=== PATIENT | female | born 1965 | race Caucasian/White ===

== ENCOUNTER 2018-01-04 08:18 | Inpatient (IN) | payer MEDICAID ==
[~2018-01-04] VITALS: Ht 165.1 cm; Wt 58.8 kg
[2018-01-04] MEDS ORDERED: LORazepam 2 MG/ML, 1ML ONE ×2 (08:28→16:41)
[2018-01-04] MEDS ORDERED: methylPREDNISolone SOD SUCC 125 MG/2 ML ONE (08:29)
[2018-01-04] MEDS ORDERED: ALBUTEROL/IPRATROPIUM 2.5MG/0.5MG, 3 ML ONE (08:39)
[2018-01-04] MEDS ORDERED: ALBUTEROL SULFATE 2.5 MG/3 ML ONE ×2 (08:39→14:15)
[2018-01-04] MEDS ORDERED: ALBUTEROL SULFATE 2.5 MG/3 ML NPPB ONE (08:40)
[2018-01-04 08:57] LABS: FIO2 40 %
[2018-01-04] MEDS ORDERED: SODIUM CHLORIDE FLUSH 10ML SYR IVF ONE (09:00)
[2018-01-04] MEDS ORDERED: MAGNESIUM SULFATE PMX 2GM/50ML 50 ML IV ONE (09:00)
[2018-01-04] MEDS ORDERED: ALBUTEROL/IPRATROPIUM 2.5MG/0.5MG, 3 ML NEB ONE (09:00)
[2018-01-04] MEDS ORDERED: ALBUTEROL/IPRATROPIUM 2.5MG/0.5MG, 3 ML NPPB SCH (09:00)
[2018-01-04 09:10] LABS: BASOPHILS # (AUTO) 0.05 x10^3/uL (0-0.1); BASOPHILS % (AUTO) 1 % (0-1); EOSINOPHILS # (AUTO) 0.59 x10^3/uL (0-0.4); EOSINOPHILS % (AUTO) 7 % (1-7); LYMPHOCYTES # (AUTO) 2.15 x10^3/uL (1-3.4); LYMPHOCYTES % (AUTO) 24 % (22-44); MD NO; MEAN CORPUSCULAR HEMOGLOBIN 29.4 pg (27.0-34.8); MEAN CORPUSCULAR HGB CONC 33.9 g/dL (32.4-35.8); MEAN CORPUSCULAR VOLUME 86.5 fL (80-100); MONOCYTES # (AUTO) 0.55 x10^3/uL (0.2-0.8); MONOCYTES % (AUTO) 6 % (2-9); NEUTROPHILS # (AUTO) 5.57 x10^3/uL (1.8-6.8); NEUTROPHILS % (AUTO) 63 % (42-75); PLATELET COUNT 431 x10^3/uL (130-400); RED BLOOD COUNT 5.02 x10^6/uL (3.82-5.3); RED CELL DISTRIBUTION WIDTH 12.8 % (9.6-15.2)
[2018-01-04] MEDS ORDERED: DIPHENHYDRAMINE 50 MG/ML, 1ML ONE (09:13)
[2018-01-04 09:23] LABS: ALBUMIN 3.8 g/dL (3.4-5.0); ANION GAP 12 mmol/L (5-15); CALCIUM 9.2 mg/dL (8.5-10.1); CHLORIDE 109 mmol/L (98-107); CREATININE 0.69 mg/dL (0.55-1.02)
[2018-01-04 09:27] LABS: TROPONIN I < 0.015 ng/mL (0.000-0.045)
[2018-01-04] MEDS ORDERED: DIPHENHYDRAMINE 50 MG/ML, 1ML IVPush ONE (09:30)
[2018-01-04] MEDS ORDERED: ALBU18HF INH (09:57)
[2018-01-04] MEDS ORDERED: GUAIFENESIN/DM 200-20MG, 10ML UDC PO PRN (11:30)
[2018-01-04] MEDS ORDERED: OXYcodone IR 5MG TABLET PO PRN (11:30)
[2018-01-04] MEDS ORDERED: ONDANSETRON 2MG/ML, 2ML IVPush PRN (11:30)
[2018-01-04] MEDS ORDERED: LACTATED RINGERS 1,000 ML IV SCH (11:30)
[2018-01-04] MEDS ORDERED: OMNIPAQUE 350 MG/ML, 100ML BOTTLE ONE (12:18)
[2018-01-04 12:55] VITALS: BP 108/77
[2018-01-04] MEDS ORDERED: methylPREDNISolone SOD SUCC 125 MG/2 ML IVPush SCH ×2 (13:00→14:00)
[2018-01-04] MEDS ORDERED: CEFTRIAXONE PMX 1GM/50ML 50 ML ONE (13:55)
[2018-01-04] MEDS: ALBUTEROL SULFATE 2.5 MG/3 ML NPPB SCH ×3 (14:20→23:25)
[2018-01-04] MEDS ORDERED: methylPREDNISolone SOD SUCC 125 MG/2 ML IVPush ONE (14:30)
[2018-01-04] MEDS: HEPARIN 5,000 UNITS/ML, 1ML SQ SCH (16:00)
[2018-01-04] MEDS: LACTATED RINGERS 1,000 ML IV SCH (16:47)
[2018-01-04] MEDS ORDERED: LORazepam 2 MG/ML, 1ML IVPush ONE (17:00)
[2018-01-04] MEDS ORDERED: LORazepam 2 MG/ML, 1ML IVPush PRN (17:00)
[2018-01-04] MEDS: CARVEDILOL 3.125 MG TABLET PO SCH (18:00)
[2018-01-04] MEDS ORDERED: CARVEDILOL 6.25 MG TABLET PO SCH (18:00)
[2018-01-04 18:51] VITALS: BP 124/66
[2018-01-05 01:33] VITALS: BP 101/64
[2018-01-05] MEDS: ALBUTEROL SULFATE 2.5 MG/3 ML NPPB SCH ×3 (02:48→11:00)
[2018-01-05] MEDS: HEPARIN 5,000 UNITS/ML, 1ML SQ SCH (04:13)
[2018-01-05] MEDS: CARVEDILOL 3.125 MG TABLET PO SCH (06:00)
[2018-01-05 07:13] VITALS: BP 109/70
[2018-01-05] MEDS: LACTATED RINGERS 1,000 ML IV SCH (08:00)
[2018-01-05] MEDS ORDERED: CARV3.1212 PO (09:20)
[2018-01-05] MEDS ORDERED: ALBU18HF INH (09:20)
[2018-01-05] MEDS ORDERED: CEFTRIAXONE PMX 1GM/50ML 50 ML IV SCH (12:00)
== END 2018-01-05 13:00 | disposition home or self-care (01) | DRG 189 ==
LOC: ED 10:39 → EDIP 10:40 → 3NE 14:16 → 4EST 18:08
PROVIDERS: ADMIT Internal Medicine Pulmonary Disease; ATTEND Internal Medicine Pulmonary Disease
PROC: 5A09357 Assistance with Respiratory Ventilation, Less than 24 Consecutive Hours, Continuous Positive Airway Pressure (ICD-10-PCS; principal; 2018-01-04)
DX: J96.00 Acute respiratory failure, unspecified whether with hypoxia or hypercapnia (principal); J44.9 Chronic obstructive pulmonary disease, unspecified; F17.210 Nicotine dependence, cigarettes, uncomplicated; G40.909 Epilepsy, unspecified, not intractable, without status epilepticus; G47.00 Insomnia, unspecified; J98.01 Acute bronchospasm; I10 Essential (primary) hypertension; Z83.3 Family history of diabetes mellitus; Z88.8 Allergy status to other drugs, medicaments and biological substances; Z90.49 Acquired absence of other specified parts of digestive tract
CPT/HCPCS: 36415; 36600; 71045; 71275; 80048; 82040; 82803; 83605; 83880; 84484; 85025; 87040; 93005; 94640; 94660; 96374; 96375; J7613; J7620; Q9967; J1200; J2060; J2930; J3475; J7120